=== PATIENT | female | born 1950 | race African-American/Black ===

== ENCOUNTER 2021-05-17 17:49 | Inpatient (IN) | payer BC, MEDICARE ==
[~2021-05-17] VITALS: Ht 157.5 cm; Wt 102.0 kg
[2021-05-17] MEDS ORDERED: SODIUM CHLORIDE 0.9% 1000ML BAG (SEPSIS BOLUS) IV ONE (20:45)
[2021-05-17] MEDS ORDERED: CEFTRIAXONE 1 G PREMIX 50 ML IV ONE (20:45)
[2021-05-17 21:27] LABS: HEMATOCRIT. 25.3 % (36.0-48.0); HEMOGLOBIN. 8.5 g/dL (12.0-16.0); MEAN CORPUSCULAR HEMOGLOBIN 31.1 pg (28.0-32.0); MEAN CORPUSCULAR VOLUME 92.6 fL (81.0-99.0); PLATELET 103 x1000/uL (130-400); RED BLOOD CELL COUNT 2.73 mill/uL (4.2-5.4); RED CELL DISTRIBUTION WIDTH 15.8 % (11.6-14.6)
[2021-05-17 21:35] LABS: CHLORIDE 105 mEq/L (98-107)
[2021-05-17 21:44] LABS: D-DIMER 7.92 mg/L FEU (<0.50); INR 1.2; PROTHROMBIN TIME 12.4 sec (9.6-11.0)
[2021-05-17 21:47] LABS: PLATELET ESTIMATE DECREASED
[2021-05-17 21:59] LABS: CLARITY URINE CLOUDY (CLEAR); COLOR URINE DK YELLOW (YELLOW); KETONES URINE TRACE (NEGATIVE); LEUKOCYTE ESTERASE URINE NEGATIVE (NEGATIVE); NITRITE URINE NEGATIVE (NEGATIVE); OCCULT BLOOD URINE NEGATIVE (NEGATIVE); PROTEIN URINE 1+ (NEGATIVE); SPECIFIC GRAVITY URINE 1.015 (1.005-1.030)
[2021-05-17] MEDS ORDERED: AZITHROMYCIN 500MG/250ML 250 ML IV NR (22:30)
[2021-05-18] MEDS ORDERED: ACETAMINOPHEN 325MG TABLET PO PRN (00:30)
[2021-05-18] MEDS ORDERED: POTASSIUM CHLORIDE 20MEQ TABLET SR PO NR (02:30)
[2021-05-18] MEDS ORDERED: CLONIDINE 0.1MG TABLET PO NR (03:30)
[2021-05-18] MEDS ORDERED: IOHEXOL-350 100 ML BOTTLE ONE (03:36)
[2021-05-18] MEDS ORDERED: HYDRALAZINE 20MG/ML VIAL IV ONE (06:45)
[2021-05-18] MEDS: ENOXAPARIN 40MG/0.4ML SYR SUBCUT SCH ×2 (09:00→10:20)
[2021-05-18 13:15] VITALS: BP 169/66
[2021-05-18] MEDS ORDERED: TRAMADOL 50MG TABLET PO PRN (13:45)
[2021-05-18] MEDS ORDERED: AMLODIPINE 5MG TABLET PO SCH (13:45)
[2021-05-18] MEDS ORDERED: VANCOMYCIN 1 G PREMIX 200 ML IV SCH ×2 (14:00→21:00)
[2021-05-18] MEDS ORDERED: CEFTRIAXONE 1 G PREMIX 50 ML IV SCH (20:00)
[2021-05-18] MEDS ORDERED: AZITHROMYCIN 500MG/250ML 250 ML IV SCH (21:00)
[2021-05-19] MEDS ORDERED: ENOXAPARIN 30MG/0.3ML SYR SUBCUT SCH (09:00)
== END 2021-05-18 15:45 | disposition left against medical advice (07) | DRG 562 ==
LOC: ER 17:49 → MICUSO 23:28 → EDBEDREQTM 23:32 → EDBEDREQ 23:32
PROVIDERS: ADMIT Family Medicine Adult Medicine; ATTEND Family Medicine Adult Medicine
PROC: 2W3TX1Z Immobilization of Left Foot using Splint (ICD-10-PCS; principal; 2021-05-17)
DX: S82.62XA Displaced fracture of lateral malleolus of left fibula, initial encounter for closed fracture (principal); J18.9 Pneumonia, unspecified organism; E87.2 Acidosis; Z20.822 Contact with and (suspected) exposure to COVID-19; I10 Essential (primary) hypertension; M25.572 Pain in left ankle and joints of left foot; C69.92 Malignant neoplasm of unspecified site of left eye; D64.9 Anemia, unspecified; E87.6 Hypokalemia; E83.51 Hypocalcemia; W18.39XA Other fall on same level, initial encounter; Y93.01 Activity, walking, marching and hiking; Z53.29 Procedure and treatment not carried out because of patient's decision for other reasons; R55 Syncope and collapse; Y92.89 Other specified places as the place of occurrence of the external cause; Z92.21 Personal history of antineoplastic chemotherapy; Y99.8 Other external cause status
CPT/HCPCS: 36415; 71045; 71275; 73610; 80053; 81003; 83605; 83880; 84145; 84484; 85025; 85379; 87077; 87186; 87426; 93005; 99291; J0360; J0456; J0696; J1650; J3370; J7030; Q9967